=== PATIENT | male | born 1965 | race Hispanic/Latino ===

== ENCOUNTER 2023-01-29 11:05 | Emergency (ER) | payer OTHER, SELFPAY ==
[2023-01-29 11:16] VITALS: BP 139/83; PULSE 83; RESP 16; TEMP 36.2; O2SAT 100; BMI 21.9
--- NOTE | 2023-01-29 11:22 | DI.RAD.S_ITS ---
PROCEDURE: XR SHOULDER RT MIN 2V INDICATIONS: r/o dislocated shoulder TECHNIQUE: 3 views of the shoulder were acquired. COMPARISON: None. FINDINGS: Bones: No fractures or dislocations. No suspicious bony lesions. Visualized ribs appear intact. Soft tissues: No suspicious soft tissue calcifications. IMPRESSION: No evidence acute bony abnormality. If clinical suspicion and/or symptoms persist, further assessment with repeat plain films, or advanced imaging (e.g., CT, MRI, or bone scan) may be helpful for further assessment. Dictated by: Gurpreet Gruber M.D. on 01/29/2023 at 11:54 Approved by: Grupreet Gruber M.D. on 01/29/2023 at 11:55
--- NOTE | 2023-01-29 12:54 | ED.UPPEXIN ---
HPI - Extremity Injury (Upper) <Rosales Whiting PA-C - Last Filed: 01/29/23 13:11> General Chief Complaint: Extremity Injury, Upper Stated Complaint: dislocated both shoulder/pain T-1 Time Seen by Provider: 01/29/23 12:53 History of Present Illness HPI narrative: This is a 57-year-old male presents emergency department due to acute on chronic right shoulder pain. He states he has been having the pain for the last 40 years. He states that he recently had an accident where he had worsening pain and received an MRI from a orthopedist that you [place]. Showed a partial-thickness partial width tear of the infraspinatus tendon with additional intrasubstance component in the setting of underlying tendinosis. There was mild tendinosis of the supraspinatus and subscapularis tendons without tear. Also showed an anterior superior labral tear. Review of Systems <Rosales Whiting PA-C - Last Filed: 01/29/23 13:11> Review of Systems Narrative: GENERAL: Denies chills, fatigue, malaise, fever, sweats. HEENT: Denies sinus pain, ear pain, sore throat, difficulty swallowing, dizziness. RESPIRATORY: Denies dyspnea, cough, wheezing, hemoptysis, sputum. CARDIOVASCULAR: Denies chest pain, palpitations, orthopnea, edema, GASTROINTESTINAL: Denies nausea, vomiting, abdominal pain, diarrhea, constipation, melena. : Denies dysuria, frequency, incontinence, hematuria, urinary retention. MUSCULOSKELETAL: Reports right shoulder pain, otherwise denies weakness, joint pain, or bony pain SKIN: Denies rash, skin lesions, or other NEUROLOGIC: Denies weakness, headache, numbness, change in speech, confusion, seizures, incoordination. PSYCHIATRIC: No concerning psychosocial issues. 12 point review of systems is negative except for those stated above Exam <Rosales Whiting PA-C - Last Filed: 01/29/23 13:11> Narrative Exam Narrative: GENERAL: Well-developed patient, in mild distress. HEAD: Atraumatic. Normocephalic. EYES: Pupils equal round and reactive. Extraocular motions intact. No scleral icterus. No injection or drainage. ENT: Nose without bleeding, purulent drainage. Throat without erythema, tonsillar hypertrophy or exudate. Airway patent. NECK: Trachea midline. Non tender CARDIOVASCULAR: Regular rate and rhythm without murmurs, gallops, or rubs. RESPIRATORY: Clear to auscultation. Breath sounds equal bilaterally. No wheezes, rales, or rhonchi. GASTROINTESTINAL: Abdomen soft, non-tender, nondistended. EXTREMITIES: Tenderness to palpation to the generalized right shoulder. Decreased range of motion secondary to pain. Neurovascularly intact throughout. BACK: Nontender without deformity or crepitance. No flank tenderness. NEURO: AOx3. SKIN: No rash or erythema of visible areas Initial Vital Signs Initial Vital Signs: Vital Signs Temperature 97.1 F L 01/29/23 11:16 Pulse Rate 83 01/29/23 11:16 Respiratory Rate 16 01/29/23 11:16 Blood Pressure 139/83 01/29/23 11:16 Pulse Oximetry 100 01/29/23 11:16 Oxygen Delivery Method Room Air 01/29/23 11:16 <Emily Haile MD - Last Filed: 01/29/23 13:58> Initial Vital Signs Initial Vital Signs: Vital Signs Temperature 97.1 F L 01/29/23 11:16 Pulse Rate 83 01/29/23 11:16 Respiratory Rate 16 01/29/23 11:16 Blood Pressure 139/83 01/29/23 11:16 Pulse Oximetry 100 01/29/23 11:16 Oxygen Delivery Method Room Air 01/29/23 11:16 Course <Rosales Whiting PA-C - Last Filed: 01/29/23 13:11> Orders Ordered: ED Orders 01/29/23 11:22 XR shoulder RT min 2V Stat Discontinued Medications Ketorolac Tromethamine (Ketorolac 30 Mg/Ml Vial) 15 mg IM NOW ONE Stop: 01/29/23 13:11 Last Admin: 01/29/23 13:26 Dose: 15 mg Documented By: OW Vital Signs Vital signs: Vital Signs - 8 hr 01/29/23 11:16 Temperature 97.1 F L Pulse Rate 83 Respiratory Rate 16 Blood Pressure 139/83 Pulse Oximetry 100 Oxygen Delivery Method Room Air <Emily Haile MD - Last Filed: 01/29/23 13:58> Orders Ordered: ED Orders 01/29/23 11:22 XR shoulder RT min 2V Stat Discontinued Medications Ketorolac Tromethamine (Ketorolac 30 Mg/Ml Vial) 15 mg IM NOW ONE Stop: 01/29/23 13:11 Last Admin: 01/29/23 13:26 Dose: 15 mg Documented By: OW Vital Signs Vital signs: Vital Signs - 8 hr 01/29/23 11:16 Temperature 97.1 F L Pulse Rate 83 Respiratory Rate 16 Blood Pressure 139/83 Pulse Oximetry 100 Oxygen Delivery Method Room Air MDM - Extremity Injury (Upper) <Rosales Whiting PA-C - Last Filed: 01/29/23 13:11> Imaging Data Extremity x-ray #1: Radiologist's Impression: [address] [address] XRay Report Signed Patient: Tashi Saavedra MR#: [id number] : 1965 Acct:[id number] Age/Sex: 57 / M Date of Service: 01/29/23 Loc: ED Accession Number: [id number] Procedure: XR shoulder RT min 2V Ordering Provider: Emily Haile MD PROCEDURE: XR SHOULDER RT MIN 2V INDICATIONS: r/o dislocated shoulder TECHNIQUE: 3 views of the shoulder were acquired. COMPARISON: None. FINDINGS: Bones: No fractures or dislocations. No suspicious bony lesions. Visualized ribs appear intact. Soft tissues: No suspicious soft tissue calcifications. IMPRESSION: No evidence acute bony abnormality. If clinical suspicion and/or symptoms persist, further assessment with repeat plain films, or advanced imaging (e.g., CT, MRI, or bone scan) may be helpful for further assessment. Dictated by: Gurpreet Gruber M.D. on 01/29/2023 at 11:54 Approved by: Gurpreet Gruber M.D. on 01/29/2023 at 11:55 [facility] Narrative Medical decision making narrative: MDM * differential diagnosis includes but not limited to labral tear, tendon injury, fracture * Prior records reviewed: Patient has not been seen here in the past * My lab interpretation: None obtained * My imgaing interpretation: Right shoulder x-ray unremarkable for fractures or other bony abnormalities. Recent MRI reviewed from patient's records through his cell phone which showed a partial-thickness partial width tear of the infraspinatus tendon with additional intrasubstance component in the setting of underlying tendinosis. There was mild tendinosis of the supraspinatus and subscapularis tendons without tear. Also showed an anterior superior labral tear. * Clinical Decision Rules/Scores evaluated: None * Independent discussions with: None ED Course: This is a 57-year-old male presents emergency department due to acute on chronic right shoulder pain. X-ray here today was negative although reviewed the results from an MRI taken 9 days ago at which showed the findings above. He states that he is a follow up visit with his orthopedist at in a proximally 3 weeks but is requesting for referral for a visit earlier. We will refer to our orthopedist for possible evaluation and treatment. He was neurovascularly intact throughout. Patient was given Toradol, a sling for comfort, and recommend take ibuprofen and Tylenol as needed for the pain until he was able to follow up with Orthopedics. Shared Decision Making: Discussed plan with the patient who is comfortable with the plan. Social Considerations: None Disposition: Discharged home Discharge Plan Departure Patient Disposition: Home Clinical Impression: Injury of right shoulder Instructions: DI for Shoulder Sprain Activity Restrictions/Additional Instructions: Thank you for coming to the [facility] Emergency Department today. We have reviewed your MRI results and I do believe that you are going to be best managed by an orthopedist. Have her do recommend you follow up with the orthopedist you have already established with [facility] in [place] but I have attached information for an orthopedist here in [facility] who may be able to see you earlier. Please use the sling as needed for comfort. You may also alternate ibuprofen and Tylenol as needed for the pain. I hope you feel better soon. Please follow up with your primary care provider within a week if your symptoms continue. If you do not have a primary care provider please contact the [facility] Resource line at [phone]. They will ask some questions about your medical history and help you get set up with a provider in the community. Referrals: Dacia Waller MD [Physician] - (Follow up regarding a partial-thickness tear of the infraspinatus tendon as well as superior labral tear and potential treatment options. Thank you!) Doctor Rucker MD [Primary Care Provider] - Stand Alone Forms: Patient Portal/API ED Sign-out <Emily Haile MD - Last Filed: 01/29/23 13:58> Cosign ED Attending Cosignature Attestation: I did not see this patient. I was available all times for consultation.
[2023-01-29] MEDS: KETOROLAC 30 MG/ML VIAL 15 MG IM (13:26)
== END 2023-01-29 13:36 | disposition home or self-care (01) ==
PROVIDERS: Emergency Provider Physician Assistant Medical
DX: S49.91XA Unspecified injury of right shoulder and upper arm, initial encounter (principal); X58.XXXA Exposure to other specified factors, initial encounter
CPT/HCPCS: 73030; 96372; 99283; J1885

== ENCOUNTER 2023-08-11 00:26 | Emergency (ER) | payer OTHER, MEDICAID, SELFPAY ==
[2023-08-11 00:42] VITALS: BP 139/84; PULSE 102; RESP 16; TEMP 36.4; O2SAT 100; BMI 23.1
--- NOTE | 2023-08-11 00:46 | ED.GENADULT ---
HPI - General Adult General Stated complaint: bump on rt calf irratated Time Seen by Provider: 08/11/23 00:33 Source: patient Mode of arrival: Ambulatory Limitations: no limitations History of Present Illness HPI narrative: Patient is a 58-year-old male is here for evaluation of a area of redness and wound on his right leg. He states it has been there for the past couple days. It has worsened. He would some leftover antibiotics from a prior infection when she was taken. He describes them as penicillin but states that the infection does not seem to be getting any better. Related Data Previous Rx's Medication Instructions Recorded doxycycline hyclate 100 mg tablet 100 mg PO BID 7 days #14 tabs 08/11/23 Review of Systems Integumentary/Breasts Skin/Breast: Reports system reviewed and no additional complaints, except as documented Exam Skin Other: Patient with a 2 cm x 2 cm area of fluctuant mass on the right anterior/lateral/anterior matthew. There is surrounding erythema. Procedures Abscess I/D I&D #1: Site: other (Right leg) Local Anesthetic: lidocaine 1% Amount of anesthesia used (mL): 2 Technique: incised with #11 blade Irrigation: No Packing used?: none Course Orders Ordered: Doxycycline Hyclate (Doxycycline Hyclate 100 Mg Tablet) 100 mg PO NOW ONE Stop: 08/11/23 00:45 Medical Decision Making MDM Narrative Medical decision making narrative: Bedside ultrasound did show a small area of abscess with surrounding erythema. The area was incised and drained as described above with return of purulent material. Patient is nontoxic appearing. Will place on doxycycline. First dose given here in the ER and a prescription was printed as he preferred this. He was given return precautions. He expressed understanding and agreement. Discharge Plan Departure Patient Disposition: Home Clinical Impression: Abscess, Cellulitis Instructions: DI for Skin Abscess Activity Restrictions/Additional Instructions: I would expect some drainage from the area over the next 24 hours. Just change the bandage as needed You can shower like normal. Take the antibiotics until gone. Return to the emergency department for new symptoms Prescriptions: New doxycycline hyclate 100 mg tablet 100 mg PO BID 7 Days Qty: 14 0RF Referrals: Miscellaneous,DoctorMD [Primary Care Provider] - Stand Alone Forms: Patient Portal/API, Work Release Note
[2023-08-11] MEDS: DOXYCYCLINE HYCLATE 100 MG TABLET PO (00:49)
== END 2023-08-11 00:52 | disposition home or self-care (01) ==
PROVIDERS: Emergency Provider Emergency Medicine
DX: L02.415 Cutaneous abscess of right lower limb (principal); L03.115 Cellulitis of right lower limb
CPT/HCPCS: 10060; 99283